=== PATIENT | female | born 1945 | race Caucasian/White ===

== ENCOUNTER 2019-07-01 14:12 | Outpatient (REF) | payer OTHER, SELFPAY ==
[2019-07-02 14:29] LABS: ALT 23 U/L (14-59); AST 40 U/L (15-37); Albumin 3.4 g/dL (3.4-5.0); Alkaline Phosphatase 203 U/L (46-116); Anion Gap 8.7 mmol/L (3-11); BUN 40 mg/dL (7-18); Bilirubin, Total 0.6 mg/dL (0.2-1.0); CO2 25.3 mmol/L (21.0-32.0); CREATININE 1.71 mg/dL (0.55-1.02); Calcium 10.1 mg/dL (8.5-10.1); Chloride 95 mmol/L (98-107); Estimated GFR 29.26 (mL/min/1.73m2); Glucose 101 mg/dL (74-106); Potassium 5.3 mmol/L (3.5-5.1); Sodium 129 mmol/L (136-145)
[2019-07-02 14:32] LABS: Iron 89 ug/dL (50-170)
== END 2019-07-01 14:32 ==
LOC: NCHCN 14:12
PROVIDERS: PCP Nurse Practitioner Family; Visit Provider Internal Medicine
DX: E11.9 Type 2 diabetes mellitus without complications (principal); I51.9 Heart disease, unspecified; I11.9 Hypertensive heart disease without heart failure; K74.69 Other cirrhosis of liver
CPT/HCPCS: 80053; 83540

== ENCOUNTER 2019-07-13 22:39 | Outpatient (REF) | payer OTHER, SELFPAY ==
[2019-07-13 20:42] LABS: Abs Immature Grans 0.02 k/cumm (0.0-0.09); Absolute Basophil Count 0.02 k/cumm (0.0-0.2); Absolute Eosinophil Count 0.28 k/cumm (0.0-0.7); Absolute Monocyte Count 1.08 k/cumm (0.11-0.7); Absolute Neutrophil Count 5.07 k/cumm (1.2-6.7); Basophils % 0.3; Eosinophils % 3.7; HCT 38.3 % (36.0-46.0); HGB 12.5 g/dL (12.0-15.5); Immature Grans % 0.3 %; Lymphocytes % 15.6; Mean Corp. HGB Concentration 32.6 g/dL (32.0-36.0); Mean Corpuscular Hemoglobin 30.3 pg (27.0-33.0); Mean Corpuscular Volume 92.7 fL (80-95); Mean Platelet Volume 10.6 fL (8.0-11.0); Monocytes % 14.1; RBC 4.13 m/cumm (4.00-5.20); RBC Distribution Width 17.6 % (11.7-14.6); White Blood Cell Count 7.67 k/cumm (4.4-10.8)
[2019-07-13 21:10] LABS: ALT 22 U/L (14-59); AST 40 U/L (15-37); Albumin 3.5 g/dL (3.4-5.0); Alkaline Phosphatase 189 U/L (46-116); Anion Gap 10.1 mmol/L (3-11); BUN 36 mg/dL (7-18); Bilirubin, Total 0.9 mg/dL (0.2-1.0); CO2 26.9 mmol/L (21.0-32.0); CREATININE 1.76 mg/dL (0.55-1.02); Calcium 9.7 mg/dL (8.5-10.1); Chloride 97 mmol/L (98-107); Estimated GFR 28.31 (mL/min/1.73m2); Glucose 102 mg/dL (74-106); Platelet Count 167 x1000/uL (130-400); Potassium 4.7 mmol/L (3.5-5.1); Sodium 134 mmol/L (136-145); TSH 0.06 uIU/mL (0.36-3.74); Total Protein 7.8 g/dL (6.4-8.2)
== END 2019-07-13 22:59 ==
LOC: LBN 22:39
PROVIDERS: PCP Nurse Practitioner Family; Visit Provider Internal Medicine
DX: I11.9 Hypertensive heart disease without heart failure (principal); I51.9 Heart disease, unspecified; K74.60 Unspecified cirrhosis of liver; E11.9 Type 2 diabetes mellitus without complications
CPT/HCPCS: 80053; 84443; 85025

== ENCOUNTER 2019-07-24 20:53 | Outpatient (REF) | payer OTHER, SELFPAY ==
[2019-07-24 21:03] LABS: Abs Immature Grans 0.02 k/cumm (0.0-0.09); Absolute Basophil Count 0.02 k/cumm (0.0-0.2); Absolute Eosinophil Count 0.51 k/cumm (0.0-0.7); Absolute Lymphocyte Count 1.19 k/cumm (1.2-3.4); Absolute Monocyte Count 0.72 k/cumm (0.11-0.7); Basophils % 0.3; Eosinophils % 8.9; HCT 33.9 % (36.0-46.0); HGB 11.1 g/dL (12.0-15.5); Immature Grans % 0.3 %; Lymphocytes % 20.7; Mean Corp. HGB Concentration 32.7 g/dL (32.0-36.0); Mean Corpuscular Hemoglobin 31.2 pg (27.0-33.0); Mean Corpuscular Volume 95.2 fL (80-95); Monocytes % 12.5; Neutrophils % 57.3; Platelet Count 169 x1000/uL (130-400); RBC 3.56 m/cumm (4.00-5.20); RBC Distribution Width 16.1 % (11.7-14.6); White Blood Cell Count 5.76 k/cumm (4.4-10.8)
== END 2019-07-24 21:13 ==
LOC: NCHCN 20:53
PROVIDERS: PCP Nurse Practitioner Family; Visit Provider Internal Medicine
DX: I11.9 Hypertensive heart disease without heart failure (principal); K74.69 Other cirrhosis of liver
CPT/HCPCS: 80048; 85025

== ENCOUNTER 2019-08-05 20:38 | Outpatient (REF) | payer OTHER, SELFPAY ==
[2019-08-05 21:20] LABS: ALT 21 U/L (14-59); AST 35 U/L (15-37); Albumin 2.7 g/dL (3.4-5.0); Alkaline Phosphatase 156 U/L (46-116); Anion Gap 6.4 mmol/L (3-11); BUN 5 mg/dL (7-18); Bilirubin, Total 0.8 mg/dL (0.2-1.0); CO2 29.6 mmol/L (21.0-32.0); CREATININE 0.99 mg/dL (0.55-1.02); Calcium 8.5 mg/dL (8.5-10.1); Chloride 103 mmol/L (98-107); Estimated GFR 54.98 (mL/min/1.73m2); Glucose 72 mg/dL (74-106); Potassium 3.9 mmol/L (3.5-5.1); Sodium 139 mmol/L (136-145); TSH 0.17 uIU/mL (0.36-3.74); Total Protein 6.3 g/dL (6.4-8.2)
== END 2019-08-05 20:58 ==
LOC: NCHCN 20:38
PROVIDERS: PCP Nurse Practitioner Family; Visit Provider Internal Medicine
DX: K74.60 Unspecified cirrhosis of liver (principal); I51.9 Heart disease, unspecified; E11.9 Type 2 diabetes mellitus without complications
CPT/HCPCS: 80053; 84443

== ENCOUNTER 2019-08-28 14:59 | Outpatient (REF) | payer OTHER, MEDICAID, SELFPAY ==
[2019-08-28 21:29] LABS: Anion Gap 5.2 mmol/L (3-11); BUN 12 mg/dL (7-18); CO2 28.8 mmol/L (21.0-32.0); CREATININE 1.02 mg/dL (0.55-1.02); Calcium 9.2 mg/dL (8.5-10.1); Chloride 103 mmol/L (98-107); Estimated GFR 53.12 (mL/min/1.73m2); Glucose 96 mg/dL (74-106); Potassium 4.7 mmol/L (3.5-5.1); Sodium 137 mmol/L (136-145)
[2019-08-28 21:31] LABS: HCT 32.8 % (36.0-46.0); HGB 10.4 g/dL (12.0-15.5); Mean Corp. HGB Concentration 31.7 g/dL (32.0-36.0); Mean Corpuscular Volume 97.6 fL (80-95); Mean Platelet Volume 11.2 fL (8.0-11.0); Platelet Count 186 x1000/uL (130-400); RBC 3.36 m/cumm (4.00-5.20); RBC Distribution Width 14.9 % (11.7-14.6)
== END 2019-08-28 15:19 ==
LOC: NCHCN 14:59
PROVIDERS: PCP Nurse Practitioner Family; Visit Provider Internal Medicine
DX: R18.8 Other ascites (principal); D64.9 Anemia, unspecified
CPT/HCPCS: 80048; 85027

== ENCOUNTER 2019-12-07 11:56 | Outpatient (REF) | payer OTHER, MEDICAID, SELFPAY ==
[2019-12-07 21:11] LABS: HCT 35.7 % (36.0-46.0); HGB 11.7 g/dL (11.2-15.7); MCHC 32.8 % (32.0-36.0); MCV 103.8 fL (80-95); MPV 9.7 fL (8.0-11.0); Platelet Count 176 10^3/uL (130-400); RBC 3.44 10^6/uL (3.93-5.22); RDW 11.9 % (11.7-14.6); RDW-SD 45.4 fL; WBC 6.29 10^3/uL (4.4-10.8)
[2019-12-07 21:44] LABS: ALT 18 U/L (14-59); AST 35 U/L (15-37); Albumin 3.6 g/dL (3.4-5.0); Alkaline Phosphatase 160 U/L (46-116); Anion Gap 5.9 mmol/L (3-11); BUN 16 mg/dL (7-18); Bilirubin, Total 0.6 mg/dL (0.2-1.0); CO2 28.1 mmol/L (21.0-32.0); CREATININE 1.36 mg/dL (0.55-1.02); Calcium 9.8 mg/dL (8.5-10.1); Chloride 105 mmol/L (98-107); Estimated GFR 38.11 (mL/min/1.73m2); Ferritin 144 ng/mL (8-252); Glucose 100 mg/dL (74-106); Potassium 5.2 mmol/L (3.5-5.1); Sodium 139 mmol/L (136-145); Total Protein 7.5 g/dL (6.4-8.2)
== END 2019-12-07 12:16 ==
LOC: NCHCN 11:56
PROVIDERS: PCP Nurse Practitioner Family; Visit Provider Internal Medicine
DX: D64.9 Anemia, unspecified (principal); K62.5 Hemorrhage of anus and rectum; E03.9 Hypothyroidism, unspecified; K70.31 Alcoholic cirrhosis of liver with ascites; F03.90 Unspecified dementia, unspecified severity, without behavioral disturbance, psychotic disturbance, mood disturbance, and anxiety; R82.90 Unspecified abnormal findings in urine
CPT/HCPCS: 80053; 85027; 82728; 84443; 87086

== ENCOUNTER 2019-12-24 21:53 | Outpatient (REF) | payer OTHER, MEDICAID, SELFPAY ==
[2019-12-24 21:03] LABS: Anion Gap 6.6 mmol/L (3-11); BUN 14 mg/dL (7-18); CO2 28.4 mmol/L (21.0-32.0); Calcium 9.6 mg/dL (8.5-10.1); Chloride 102 mmol/L (98-107); Estimated GFR 34.04 (mL/min/1.73m2); Glucose 133 mg/dL (74-106); Potassium 4.9 mmol/L (3.5-5.1); Sodium 137 mmol/L (136-145)
== END 2019-12-24 22:13 ==
LOC: NCHCN 21:53
PROVIDERS: PCP Nurse Practitioner Family; Visit Provider Nurse Practitioner Family
DX: R94.4 Abnormal results of kidney function studies (principal)
CPT/HCPCS: 80048

== ENCOUNTER 2020-01-26 12:41 | Outpatient (REF) | payer OTHER, MEDICAID, SELFPAY ==
[2020-01-26 22:03] LABS: ALT 19 U/L (14-59); AST 25 U/L (15-37); Albumin 3.2 g/dL (3.4-5.0); Alkaline Phosphatase 145 U/L (46-116); BUN 7 mg/dL (7-18); Bilirubin, Total 0.5 mg/dL (0.2-1.0); CREATININE 1.29 mg/dL (0.55-1.02); Calcium 9.3 mg/dL (8.5-10.1); Chloride 103 mmol/L (98-107); Estimated GFR 40.51 (mL/min/1.73m2); Glucose 100 mg/dL (74-106); Potassium 4.5 mmol/L (3.5-5.1); Sodium 140 mmol/L (136-145); TSH (W/Ref FT4) 3.27 uIU/mL (0.36-3.74); Total Protein 6.7 g/dL (6.4-8.2)
== END 2020-01-26 13:01 ==
LOC: NCHCN 12:41
PROVIDERS: PCP Nurse Practitioner Family; Visit Provider Nurse Practitioner Family
DX: E03.9 Hypothyroidism, unspecified (principal); N28.9 Disorder of kidney and ureter, unspecified
CPT/HCPCS: 80053; 84443

== ENCOUNTER 2020-07-12 12:53 | Outpatient (REF) | payer OTHER, MEDICAID, SELFPAY ==
[2020-07-12 22:01] LABS: ALT 22 U/L (14-59); AST 30 U/L (15-37); Albumin 3.3 g/dL (3.4-5.0); Alkaline Phosphatase 141 U/L (46-116); Anion Gap 8.9 mmol/L (3-11); BUN 6 mg/dL (7-18); Bilirubin, Total 0.7 mg/dL (0.2-1.0); CO2 27.1 mmol/L (21.0-32.0); CREATININE 1.2 mg/dL (0.55-1.02); Calcium 9.4 mg/dL (8.5-10.1); Chloride 105 mmol/L (98-107); Estimated GFR 43.91 (mL/min/1.73m2); Glucose 116 mg/dL (74-106); Potassium 4.8 mmol/L (3.5-5.1); Sodium 141 mmol/L (136-145); TSH 0.81 uIU/mL (0.36-3.74); Total Protein 7.4 g/dL (6.4-8.2)
== END 2020-07-12 12:54 | disposition home or self-care (01) ==
LOC: NCHCN 12:53
PROVIDERS: PCP Nurse Practitioner Family; Visit Provider Nurse Practitioner Family
DX: E03.9 Hypothyroidism, unspecified (principal); Z51.81 Encounter for therapeutic drug level monitoring
CPT/HCPCS: 80053; 84443

== ENCOUNTER 2021-03-23 12:49 | Outpatient (REF) | payer OTHER, MEDICAID, SELFPAY ==
[2021-03-23 21:25] LABS: HCT 39.2 % (36.0-46.0); HGB 12.7 g/dL (11.2-15.7); MCH 32.6 pg (27.0-33.0); MCHC 32.4 % (32.0-36.0); MCV 100.5 fL (80-95); MPV 10.5 fL (8.0-11.0); Platelet Count 147 10^3/uL (130-400); RDW 13.1 % (11.7-14.6); RDW-SD 48.9 fL; WBC 5.81 10^3/uL (4.4-10.8)
[2021-03-23 22:08] LABS: ALT 17 U/L (14-59); AST 25 U/L (15-37); Albumin 3.1 g/dL (3.4-5.0); Alkaline Phosphatase 205 U/L (46-116); Anion Gap 8.5 mmol/L (3-11); BUN 11 mg/dL (7-18); Bilirubin, Total 0.9 mg/dL (0.2-1.0); CO2 28.5 mmol/L (21.0-32.0); Calcium 9.2 mg/dL (8.5-10.1); Chloride 105 mmol/L (98-107); Estimated GFR 54.05 (mL/min/1.73m2); Glucose 168 mg/dL (74-106); Sodium 142 mmol/L (136-145); TSH (W/Ref FT4) 0.03 uIU/mL (0.36-3.74)
[2021-03-23 22:38] LABS: FREE T4 1.12 ng/dL (0.76-1.46)
== END 2021-03-23 12:50 | disposition home or self-care (01) ==
LOC: NCHCN 12:49
PROVIDERS: PCP Nurse Practitioner Family; Visit Provider Nurse Practitioner Family
DX: F03.90 Unspecified dementia, unspecified severity, without behavioral disturbance, psychotic disturbance, mood disturbance, and anxiety (principal); K70.31 Alcoholic cirrhosis of liver with ascites; K72.91 Hepatic failure, unspecified with coma
CPT/HCPCS: 80053; 85027; 84439; 84443

== ENCOUNTER 2021-06-05 18:29 | Outpatient (REF) | payer OTHER, MEDICAID, SELFPAY ==
[2021-06-05 21:52] LABS: Glucose 133 mg/dL (74-106); TSH 0.39 uIU/mL (0.36-3.74)
== END 2021-06-05 18:30 | disposition home or self-care (01) ==
LOC: NCHCN 18:29
PROVIDERS: PCP Nurse Practitioner Family; Visit Provider Internal Medicine
DX: R73.09 Other abnormal glucose (principal); E03.9 Hypothyroidism, unspecified
CPT/HCPCS: 82947; 84443

== ENCOUNTER 2022-01-09 14:09 | Outpatient (REF) | payer OTHER, MEDICAID, SELFPAY ==
[2022-01-09 16:47] LABS: HCT 37.1 % (36.0-46.0); HGB 12.4 g/dL (11.2-15.7); MCH 33.8 pg (27.0-33.0); MCHC 33.4 % (32.0-36.0); MCV 101 fL (80-95); MPV 11.1 fL (8.0-11.0); Platelet Count 157 10^3/uL (130-400); RBC 3.67 10^6/uL (3.93-5.22); RDW 12.1 % (11.7-14.6); RDW-SD 45.6 fL; WBC 6.41 10^3/uL (4.4-10.8)
[2022-01-09 16:56] LABS: Hemoglobin A1C 5.8 % (<5.7)
[2022-01-09 16:59] LABS: ALT 18 U/L (14-59); AST 30 U/L (15-37); Albumin 3.3 g/dL (3.4-5.0); Alkaline Phosphatase 139 U/L (46-116); BUN 10 mg/dL (7-18); Bilirubin, Total 0.7 mg/dL (0.2-1.0); CREATININE 1.2 mg/dL (0.55-1.02); Calcium 9.6 mg/dL (8.5-10.1); Chloride 103 mmol/L (98-107); Estimated GFR 47.21 (mL/min/1.73m2); Glucose 145 mg/dL (74-106); Sodium 140 mmol/L (136-145); Total Protein 7.6 g/dL (6.4-8.2)
== END 2022-01-09 14:10 | disposition home or self-care (01) ==
LOC: NCHCN 14:09
PROVIDERS: PCP Nurse Practitioner Family; Visit Provider Nurse Practitioner Family
DX: R73.03 Prediabetes (principal); K74.60 Unspecified cirrhosis of liver
CPT/HCPCS: 80053; 85027; 83036

== ENCOUNTER 2022-06-07 21:20 | Outpatient (REF) | payer MEDICARE, MEDICAID, SELFPAY ==
[2022-06-07 21:44] LABS: TSH 0.24 uIU/mL (0.36-3.74)
== END 2022-06-07 21:21 | disposition home or self-care (01) ==
LOC: NCHCN 21:20
PROVIDERS: PCP Nurse Practitioner Family; Visit Provider Nurse Practitioner Family
DX: E03.9 Hypothyroidism, unspecified (principal)
CPT/HCPCS: 84443

== ENCOUNTER 2022-07-20 11:51 | Outpatient (REF) | payer MEDICARE, MEDICAID, SELFPAY ==
[2022-07-20 15:38] LABS: TSH 6.68 uIU/mL (0.36-3.74)
== END 2022-07-20 11:52 | disposition home or self-care (01) ==
LOC: NCHCN 11:51
PROVIDERS: PCP Nurse Practitioner Family; Visit Provider Nurse Practitioner Family
DX: E03.9 Hypothyroidism, unspecified (principal)
CPT/HCPCS: 84443

== ENCOUNTER 2022-09-25 13:31 | Outpatient (REF) | payer MEDICARE, MEDICAID, SELFPAY ==
[2022-09-25 22:09] LABS: HCT 35.7 % (36.0-46.0); HGB 11.9 g/dL (11.2-15.7); MCH 33.5 pg (27.0-33.0); MCHC 33.3 % (32.0-36.0); MCV 101 fL (80-95); MPV 10.7 fL (8.0-11.0); Platelet Count 179 10^3/uL (130-400); RBC 3.55 10^6/uL (3.93-5.22); RDW 13.2 % (11.7-14.6); WBC 6.92 10^3/uL (4.4-10.8)
[2022-09-25 22:16] LABS: Prothrombin Time 10.3 sec (9.3-11.0)
[2022-09-25 22:34] LABS: ALT 36 U/L (14-59); AST 42 U/L (15-37); Albumin 3.5 g/dL (3.4-5.0); Alkaline Phosphatase 136 U/L (46-116); Anion Gap 8.3 mmol/L (3-11); BUN 9 mg/dL (7-18); Bilirubin, Total 0.4 mg/dL (0.2-1.0); CO2 28.7 mmol/L (21.0-32.0); CREATININE 1.1 mg/dL (0.55-1.02); Calcium 8.9 mg/dL (8.5-10.1); Chloride 106 mmol/L (98-107); Estimated GFR 52.08 (mL/min/1.73m2); Glucose 97 mg/dL (74-106); Magnesium 1.8 mg/dL (1.8-2.4); Potassium 3.9 mmol/L (3.5-5.1); Sodium 143 mmol/L (136-145); TSH 2.05 uIU/mL (0.36-3.74); Total Protein 7.2 g/dL (6.4-8.2)
== END 2022-09-25 13:32 | disposition home or self-care (01) ==
LOC: NCHCN 13:31
PROVIDERS: PCP Nurse Practitioner Family; Visit Provider Nurse Practitioner Family
DX: K73.1 Chronic lobular hepatitis, not elsewhere classified (principal); K72.10 Chronic hepatic failure without coma; E03.9 Hypothyroidism, unspecified; K70.31 Alcoholic cirrhosis of liver with ascites
CPT/HCPCS: 80053; 85027; 83735; 84443; 85610

== ENCOUNTER 2023-01-08 17:26 | Outpatient (REF) | payer MEDICARE, MEDICAID, SELFPAY ==
--- OUTSIDE RECORDS SUMMARY | 2023-01-08 17:29 | XMS_ITS | CCD ---
Author Name Unknown Address [address] [place] [address] [phone] Organization Unknown Address [address] [place] [address] [phone] Care Team Providers Care Cytotechnologist Supervisor Name Role Phone KYLE KATHLEEN Attending Physician [phone] Vital Signs Unknown or Not Available. Allergies Unknown or Not Available. Procedures Unknown or Not Available. History of Immunizations Unknown or Not Available. Problems Problem Code Start Date Resolved Date Status NSTEMI [id number] Active Systolic heart murmur [id number] Act nola Results Unknown or Not Available. Active Medications Medication Code Dose Units Frequency Route Modificatio n Start Date/Time Nitroglycerin 0.4MG Sublingual Tablet 293930 1 TABLET NEEDED SUBLINGUAL 12:19 Prescription Detail DISSOLVE 1 TABLET SUBLINGUAL NEEDED F OR CHEST PAIN, REPEAT AFTER 5 MINUTES X 2 NEEDED Atorvastatin Calcium 40MG Oral Tablet [id number] 40 MILLIGRAMS BEDTIME ORAL 023 12:17 Prescription Detail TAKE 40 MILLIGRAMS ORAL BEDTIME Calcium 1200 w/Vitamin D 600 MG-100 IU Oral Capsule, Liquid Filled 57889981123 2 EACH BEDTIME ORAL 10/2022 12:17 Prescription Detail TAKE 2 EACH ORAL BEDTIME Citalopram 20MG Oral Tablet 123136 20 MILLIGRAMS DAILY ORAL 12:17 Prescription Detail TAKE 20 MILLIGRAMS ORAL DAILY Gabapentin 400MG Oral Capsule 660783 400 MILLIGRAMS FOUR TIMES A DAY ORAL 10/19/2022 12:17 Prescription Detail TAKE 400 MILLIGRAMS ORAL FOUR TIMES A DA Y Iron 65 MG Oral Tablet 724532 65 MG DAILY ORAL 10/20/19 12:17 Prescription Detail TAKE 65 MG ORAL DAILY Levothyroxine 75MCG Oral Tablet 386277 75 MCG DAILY ORAL 10/19/2022 12:17 Prescription Detail TAKE 75 MCG ORAL DAILY Magnesium 200 MG Oral Tablet 929082 200 MG DAILY ORAL 10/19 12:17 Prescription Detail TAKE 200 MG ORAL DAILY NAC 600 MG Oral Capsule 911248 600 MG DAILY ORAL 023 12:17 Prescription Detail TAKE 600 MG ORAL DAILY Taurine 1000 MG Oral Capsule [id number] 1000 MG DAILY ORAL 10/20/19 12:17 Prescription Detail TAKE 1000 MG ORAL DAILY traMADol HCl 50MG Oral Tablet 207636 50 MILLIGRAMS NEEDED AT BEDTIME ORAL 10/19/2022 12:17 Prescription Detail TAKE 50 MILLIGRAMS ORAL NEEDED AT BED TIME Vitamin B1 100MG Oral Tablet 91769320974 100 MILLIGRAMS DAILY ORAL 023 12:17 Prescription Detail TAKE 100 MILLIGRAMS ORAL DAILY Vitamin C 1000MG Oral Tablet 560158 8391 MILLIGRAMS DAILY ORAL 12:17 Prescription Detail TAKE 1000 MILLIGRAMS ORAL DAILY Vitamin D3 1000IU Oral Tablet 471072 4561 INTERNATION AL UNITS DAILY ORAL 10/19/2022 12:17 Prescription Detail TAKE 1000 INTERNATIONAL UNITS ORAL DAILY Aspirin 81MG Oral Tablet, Enteric Coated 806027 81 MILLIGRAMS DAILY WITH FOOD ORAL 10/19/2022 12:16 Prescription Detail TAKE 81 MILLIGRAMS ORAL DAILY WITH FOOD Medications Administered During Visit Unknown or Not Available. Encounters Unknown or Not Available. Social History Smoking Status Code Start Date End Date Never smoker [id number] Patient Decision Aids Unknown or Not Available. Discharge Instructions You were admitted to on 05/09/2022 09:51 You were discharged from on 05/09/2022 09:52 Should you have any questions prior to discharge, please contact a member of your healthcare team. If you have left the hospital and have any questions, please contact your primary care physician. Chief Complaint and Reason For Visit Chief Complaint Date of Onset CIRRHOSIS Function Status Unknown or Not Available. Plan of Care Unknown or Not Available. Referral/Transition of Care Unknown or Not Available.
--- OUTSIDE RECORDS SUMMARY | 2023-01-08 17:29 | XMS_ITS | CCD ---
Author Name Unknown Address [address] [place] [address] [phone] Organization Unknown Address [address] [place] [address] [phone] Care Team Providers Care Process Validation Engineer Name Role Phone LINDA TELLO Attending Physician [phone] Vital Signs Unknown or Not Available. Allergies Allergy Code Allergy Type Reaction Status GLUTEN 0 Food allergy Active No Known Drug Allergies 0 No known drug allergies Active Procedures Unknown or Not Available. History of Immunizations Unknown or Not Available. Problems Problem Code Start Date Resolved Date Status NSTEMI [id number] Active Systolic heart murmur 34915005 Act nola Results Unknown or Not Available. Active Medications Medication Code Dose Units Frequency Route Modificatio n Start Date/Time Nitroglycerin 0.4MG Sublingual Tablet 864939 1 TABLET NEEDED SUBLINGUAL 12:19 Prescription Detail DISSOLVE 1 TABLET SUBLINGUAL NEEDED F OR CHEST PAIN, REPEAT AFTER 5 MINUTES X 2 NEEDED Atorvastatin Calcium 40MG Oral Tablet 973878 40 MILLIGRAMS BEDTIME ORAL 023 12:17 Prescription Detail TAKE 40 MILLIGRAMS ORAL BEDTIME Calcium 1200 w/Vitamin D 600 MG-100 IU Oral Capsule, Liquid Filled 66863291366 2 EACH BEDTIME ORAL 10/2022 12:17 Prescription Detail TAKE 2 EACH ORAL BEDTIME Citalopram 20MG Oral Tablet 409607 20 MILLIGRAMS DAILY ORAL 12:17 Prescription Detail TAKE 20 MILLIGRAMS ORAL DAILY Gabapentin 400MG Oral Capsule 481265 400 MILLIGRAMS FOUR TIMES A DAY ORAL 10/19/2022 12:17 Prescription Detail TAKE 400 MILLIGRAMS ORAL FOUR TIMES A DA Y Iron 65 MG Oral Tablet [id number] 65 MG DAILY ORAL 10/20/19 12:17 Prescription Detail TAKE 65 MG ORAL DAILY Levothyroxine 75MCG Oral Tablet 871441 75 MCG DAILY ORAL 10/19/2022 12:17 Prescription Detail TAKE 75 MCG ORAL DAILY Magnesium 200 MG Oral Tablet 519087 200 MG DAILY ORAL 10/19 12:17 Prescription Detail TAKE 200 MG ORAL DAILY NAC 600 MG Oral Capsule 746441 600 MG DAILY ORAL 023 12:17 Prescription Detail TAKE 600 MG ORAL DAILY Taurine 1000 MG Oral Capsule 10512954159 1000 MG DAILY ORAL 10/20/19 23 12:17 Prescription Detail TAKE 1000 MG ORAL DAILY traMADol HCl 50MG Oral Tablet [id number] 50 MILLIGRAMS NEEDED AT BEDTIME ORAL 10/19/2022 12:17 Prescription Detail TAKE 50 MILLIGRAMS ORAL NEEDED AT BED TIME Vitamin B1 100MG Oral Tablet 25040976125 100 MILLIGRAMS DAILY ORAL 023 12:17 Prescription Detail TAKE 100 MILLIGRAMS ORAL DAILY Vitamin C 1000MG Oral Tablet 899829 6372 MILLIGRAMS DAILY ORAL 12:17 Prescription Detail TAKE 1000 MILLIGRAMS ORAL DAILY Vitamin D3 1000IU Oral Tablet 649909 2304 INTERNATION AL UNITS DAILY ORAL 10/19/2022 12:17 Prescription Detail TAKE 1000 INTERNATIONAL UNITS ORAL DAILY Aspirin 81MG Oral Tablet, Enteric Coated 227953 81 MILLIGRAMS DAILY WITH FOOD ORAL 10/19/2022 12:16 Prescription Detail TAKE 81 MILLIGRAMS ORAL DAILY WITH FOOD Medications Administered During Visit Unknown or Not Available. Encounters Unknown or Not Available. Social History Smoking Status Code Start Date End Date Never smoker [id number] Patient Decision Aids Unknown or Not Available. Discharge Instructions You were admitted to [facility] on 12/07/2022 09:33 You were discharged from [facility] on 12/07/2022 09:33 Should you have any questions prior to discharge, please contact a member of your healthcare team. If you have left the hospital and have any questions, please contact your primary care physician. Chief Complaint and Reason For Visit Unknown or Not Available. Function Status Unknown or Not Available. Plan of Care Unknown or Not Available. Referral/Transition of Care Unknown or Not Available.
--- OUTSIDE RECORDS SUMMARY | 2023-01-08 17:29 | XMS_ITS | CCD ---
Author Name Unknown Address [address] [place] [address] [phone] Organization Unknown Address [address] [place] [address] [phone] Care Team Providers Care Curb Setter Name Role Phone LINDA TELLO Attending Physician [phone] LINDA TELLO Rounding (Secondary) Physician [phone] Vital Signs Unknown or Not Available. Allergies Unknown or Not Available. Procedures Unknown or Not Available. History of Immunizations Unknown or Not Available. Problems Problem Code Start Date Resolved Date Status NSTEMI [id number] Active Systolic heart murmur 71279333 Act nola Results Unknown or Not Available. Active Medications Medication Code Dose Units Frequency Route Modificatio n Start Date/Time Nitroglycerin 0.4MG Sublingual Tablet 245785 1 TABLET NEEDED SUBLINGUAL 12:19 Prescription Detail DISSOLVE 1 TABLET SUBLINGUAL NEEDED F OR CHEST PAIN, REPEAT AFTER 5 MINUTES X 2 NEEDED Atorvastatin Calcium 40MG Oral Tablet 789291 40 MILLIGRAMS BEDTIME ORAL 023 12:17 Prescription Detail TAKE 40 MILLIGRAMS ORAL BEDTIME Calcium 1200 w/Vitamin D 600 MG-100 IU Oral Capsule, Liquid Filled 04210332491 2 EACH BEDTIME ORAL 10/2022 12:17 Prescription Detail TAKE 2 EACH ORAL BEDTIME Citalopram 20MG Oral Tablet [id number] 20 MILLIGRAMS DAILY ORAL 12:17 Prescription Detail TAKE 20 MILLIGRAMS ORAL DAILY Gabapentin 400MG Oral Capsule 659876 400 MILLIGRAMS FOUR TIMES A DAY ORAL 10/19/2022 12:17 Prescription Detail TAKE 400 MILLIGRAMS ORAL FOUR TIMES A DA Y Iron 65 MG Oral Tablet 188795 65 MG DAILY ORAL 10/20/19 12:17 Prescription Detail TAKE 65 MG ORAL DAILY Levothyroxine 75MCG Oral Tablet 750101 75 MCG DAILY ORAL 10/19/2022 12:17 Prescription Detail TAKE 75 MCG ORAL DAILY Magnesium 200 MG Oral Tablet [id number] 200 MG DAILY ORAL 10/19 12:17 Prescription Detail TAKE 200 MG ORAL DAILY NAC 600 MG Oral Capsule 742541 600 MG DAILY ORAL 023 12:17 Prescription Detail TAKE 600 MG ORAL DAILY Taurine 1000 MG Oral Capsule 35646376754 1000 MG DAILY ORAL 10/20/19 23 12:17 Prescription Detail TAKE 1000 MG ORAL DAILY traMADol HCl 50MG Oral Tablet 864385 50 MILLIGRAMS NEEDED AT BEDTIME ORAL 10/19/2022 12:17 Prescription Detail TAKE 50 MILLIGRAMS ORAL NEEDED AT BED TIME Vitamin B1 100MG Oral Tablet 83640057167 100 MILLIGRAMS DAILY ORAL 023 12:17 Prescription Detail TAKE 100 MILLIGRAMS ORAL DAILY Vitamin C 1000MG Oral Tablet 087720 1046 MILLIGRAMS DAILY ORAL 12:17 Prescription Detail TAKE 1000 MILLIGRAMS ORAL DAILY Vitamin D3 1000IU Oral Tablet 435223 5996 INTERNATION AL UNITS DAILY ORAL 10/19/2022 12:17 Prescription Detail TAKE 1000 INTERNATIONAL UNITS ORAL DAILY Aspirin 81MG Oral Tablet, Enteric Coated 100280 81 MILLIGRAMS DAILY WITH FOOD ORAL 10/19/2022 12:16 Prescription Detail TAKE 81 MILLIGRAMS ORAL DAILY WITH FOOD Medications Administered During Visit Unknown or Not Available. Encounters Encounter Diagnosis Diagnosis Code Start Date Bilateral acquired trigger finger of middle fing ers [id number] 05/31/2021 Social History Smoking Status Code Start Date End Date Never smoker [id number] Patient Decision Aids Unknown or Not Available. Discharge Instructions You were admitted to [facility] on 05/31/2021 13:46 with a principal diagnosis of Acquired trigger finger of bilateral middle fingers You were discharged from [facility] on 05/31/2021 00:00 Should you have any questions prior to [...]
--- OUTSIDE RECORDS SUMMARY | 2023-01-08 17:29 | XMS_ITS | CCD ---
Author Name Unknown Address [address] [place] [address] [phone] Organization Unknown Address [address] [place] [address] [phone] Care Team Providers Care Clinical Program Manager Name Role Phone LINDA TELLO Attending Physician [phone] LINDA TELLO Rounding (Secondary) Physician [phone] Vital Signs Unknown or Not Available. Allergies Unknown or Not Available. Procedures Unknown or Not Available. History of Immunizations Unknown or Not Available. Problems Problem Code Start Date Resolved Date Status NSTEMI 501170525 Active Systolic heart murmur 52273398 Act nola Results Unknown or Not Available. Active Medications Medication Code Dose Units Frequency Route Modificatio n Start Date/Time Nitroglycerin 0.4MG Sublingual Tablet 711194 1 TABLET NEEDED SUBLINGUAL 12:19 Prescription Detail DISSOLVE 1 TABLET SUBLINGUAL NEEDED F OR CHEST PAIN, REPEAT AFTER 5 MINUTES X 2 NEEDED Atorvastatin Calcium 40MG Oral Tablet 524554 40 MILLIGRAMS BEDTIME ORAL 023 12:17 Prescription Detail TAKE 40 MILLIGRAMS ORAL BEDTIME Calcium 1200 w/Vitamin D 600 MG-100 IU Oral Capsule, Liquid Filled 94255704405 2 EACH BEDTIME ORAL 10/2022 12:17 Prescription Detail TAKE 2 EACH ORAL BEDTIME Citalopram 20MG Oral Tablet 477258 20 MILLIGRAMS DAILY ORAL 12:17 Prescription Detail TAKE 20 MILLIGRAMS ORAL DAILY Gabapentin 400MG Oral Capsule 816862 400 MILLIGRAMS FOUR TIMES A DAY ORAL 10/19/2022 12:17 Prescription Detail TAKE 400 MILLIGRAMS ORAL FOUR TIMES A DA Y Iron 65 MG Oral Tablet 799785 65 MG DAILY ORAL 10/20/19 12:17 Prescription Detail TAKE 65 MG ORAL DAILY Levothyroxine 75MCG Oral Tablet [id number] 75 MCG DAILY ORAL 10/19/2022 12:17 Prescription Detail TAKE 75 MCG ORAL DAILY Magnesium 200 MG Oral Tablet [id number] 200 MG DAILY ORAL 10/19 12:17 Prescription Detail TAKE 200 MG ORAL DAILY NAC 600 MG Oral Capsule [id number] 600 MG DAILY ORAL 023 12:17 Prescription Detail TAKE 600 MG ORAL DAILY Taurine 1000 MG Oral Capsule 12031118879 1000 MG DAILY ORAL 10/20/19 23 12:17 Prescription Detail TAKE 1000 MG ORAL DAILY traMADol HCl 50MG Oral Tablet 458007 50 MILLIGRAMS NEEDED AT BEDTIME ORAL 10/19/2022 12:17 Prescription Detail TAKE 50 MILLIGRAMS ORAL NEEDED AT BED TIME Vitamin B1 100MG Oral Tablet 61535559219 100 MILLIGRAMS DAILY ORAL 023 12:17 Prescription Detail TAKE 100 MILLIGRAMS ORAL DAILY Vitamin C 1000MG Oral Tablet 861327 8570 MILLIGRAMS DAILY ORAL 12:17 Prescription Detail TAKE 1000 MILLIGRAMS ORAL DAILY Vitamin D3 1000IU Oral Tablet 771765 5971 INTERNATION AL UNITS DAILY ORAL 10/19/2022 12:17 Prescription Detail TAKE 1000 INTERNATIONAL UNITS ORAL DAILY Aspirin 81MG Oral Tablet, Enteric Coated 019315 81 MILLIGRAMS DAILY WITH FOOD ORAL 10/19/2022 12:16 Prescription Detail TAKE 81 MILLIGRAMS ORAL DAILY WITH FOOD Medications Administered During Visit Unknown or Not Available. Encounters Encounter Diagnosis Diagnosis Code Start Date Trigger finger, right ring finger [id number] 07/12/2021 Social History Smoking Status Code Start Date End Date Never smoker [id number] Patient Decision Aids Unknown or Not Available. Discharge Instructions You were admitted to [facility] on 07/12/2021 09:56 with a principal diagnosis of Trigger finger, right ring finger You were discharged from [facility] on 07/12/2021 00:00 Should you have any questions prior [...]
--- OUTSIDE RECORDS SUMMARY | 2023-01-08 17:30 | XMS_ITS | CCD ---
Author Name Unknown Address [address] [place] [address] [phone] Organization Unknown Address [address] [place] [address] [phone] Care Team Providers Care Manager Of Tax Name Role Phone SREE WHITMORE Attending Physician [phone] Vital Signs Unknown or Not Available. Allergies Allergy Code Allergy Type Reaction Status GLUTEN 0 Food allergy Active No Known Drug Allergies 0 No known drug allergies Active Procedures Unknown or Not Available. History of Immunizations Unknown or Not Available. Problems Problem Code Start Date Resolved Date Status NSTEMI 969344427 Active Systolic heart murmur 42077827 Act nola Results Unknown or Not Available. Active Medications Medication Code Dose Units Frequency Route Modificatio n Start Date/Time Nitroglycerin 0.4MG Sublingual Tablet 266167 1 TABLET NEEDED SUBLINGUAL 12:19 Prescription Detail DISSOLVE 1 TABLET SUBLINGUAL NEEDED F OR CHEST PAIN, REPEAT AFTER 5 MINUTES X 2 NEEDED Atorvastatin Calcium 40MG Oral Tablet 740885 40 MILLIGRAMS BEDTIME ORAL 023 12:17 Prescription Detail TAKE 40 MILLIGRAMS ORAL BEDTIME Calcium 1200 w/Vitamin D 600 MG-100 IU Oral Capsule, Liquid Filled 09922576513 2 EACH BEDTIME ORAL 10/2022 12:17 Prescription Detail TAKE 2 EACH ORAL BEDTIME Citalopram 20MG Oral Tablet 600580 20 MILLIGRAMS DAILY ORAL 12:17 Prescription Detail TAKE 20 MILLIGRAMS ORAL DAILY Gabapentin 400MG Oral Capsule 525866 400 MILLIGRAMS FOUR TIMES A DAY ORAL 10/19/2022 12:17 Prescription Detail TAKE 400 MILLIGRAMS ORAL FOUR TIMES A DA Y Iron 65 MG Oral Tablet 704247 65 MG DAILY ORAL 10/20/19 12:17 Prescription Detail TAKE 65 MG ORAL DAILY Levothyroxine 75MCG Oral Tablet 646728 75 MCG DAILY ORAL 10/19/2022 12:17 Prescription Detail TAKE 75 MCG ORAL DAILY Magnesium 200 MG Oral Tablet 630777 200 MG DAILY ORAL 10/19 12:17 Prescription Detail TAKE 200 MG ORAL DAILY NAC 600 MG Oral Capsule 784820 600 MG DAILY ORAL 023 12:17 Prescription Detail TAKE 600 MG ORAL DAILY Taurine 1000 MG Oral Capsule 15074781595 1000 MG DAILY ORAL 10/20/19 23 12:17 Prescription Detail TAKE 1000 MG ORAL DAILY traMADol HCl 50MG Oral Tablet 312975 50 MILLIGRAMS NEEDED AT BEDTIME ORAL 10/19/2022 12:17 Prescription Detail TAKE 50 MILLIGRAMS ORAL NEEDED AT BED TIME Vitamin B1 100MG Oral Tablet 48369160803 100 MILLIGRAMS DAILY ORAL 023 12:17 Prescription Detail TAKE 100 MILLIGRAMS ORAL DAILY Vitamin C 1000MG Oral Tablet 322471 0278 MILLIGRAMS DAILY ORAL 12:17 Prescription Detail TAKE 1000 MILLIGRAMS ORAL DAILY Vitamin D3 1000IU Oral Tablet 846285 8422 INTERNATION AL UNITS DAILY ORAL 10/19/2022 12:17 Prescription Detail TAKE 1000 INTERNATIONAL UNITS ORAL DAILY Aspirin 81MG Oral Tablet, Enteric Coated 561393 81 MILLIGRAMS DAILY WITH FOOD ORAL 10/19/2022 12:16 Prescription Detail TAKE 81 MILLIGRAMS ORAL DAILY WITH FOOD Medications Administered During Visit Unknown or Not Available. Encounters Encounter Diagnosis Diagnosis Code Start Date Aortic stenosis, non-rheumatic [id number] 0 10/25/2022 Social History Smoking Status Code Start Date End Date Never smoker 120732049 Patient Decision Aids Unknown or Not Available. Discharge Instructions You were admitted to [facility] on 10/25/2022 08:46 with a principal diagnosis of Nonrheumatic aortic (valve) stenosis You were discharged from [facility] on 10/25/2022 08:46 Should you have any questions prior to [...]
--- OUTSIDE RECORDS SUMMARY | 2023-01-08 17:30 | XMS_ITS | CCD ---
Author Name Unknown Address [address] [place] [address] [phone] Organization Unknown Address [address] [place] [address] [phone] Care Team Providers Care Observer Helper Name Role Phone JOSE D ALBARADO Attending Physician [phone] Vital Signs Unknown or Not Available. Allergies Allergy Code Allergy Type Reaction Status GLUTEN 0 Food allergy Active No Known Drug Allergies 0 No known drug allergies Active Procedures Unknown or Not Available. History of Immunizations Unknown or Not Available. Problems Problem Code Start Date Resolved Date Status NSTEMI 606853945 Active Systolic heart murmur 04043189 Act nola Results Unknown or Not Available. Active Medications Medication Code Dose Units Frequency Route Modificatio n Start Date/Time Nitroglycerin 0.4MG Sublingual Tablet 030603 1 TABLET NEEDED SUBLINGUAL 12:19 Prescription Detail DISSOLVE 1 TABLET SUBLINGUAL NEEDED F OR CHEST PAIN, REPEAT AFTER 5 MINUTES X 2 NEEDED Atorvastatin Calcium 40MG Oral Tablet 395711 40 MILLIGRAMS BEDTIME ORAL 023 12:17 Prescription Detail TAKE 40 MILLIGRAMS ORAL BEDTIME Calcium 1200 w/Vitamin D 600 MG-100 IU Oral Capsule, Liquid Filled [id number] 2 EACH BEDTIME ORAL 10/2022 12:17 Prescription Detail TAKE 2 EACH ORAL BEDTIME Citalopram 20MG Oral Tablet 345238 20 MILLIGRAMS DAILY ORAL 12:17 Prescription Detail TAKE 20 MILLIGRAMS ORAL DAILY Gabapentin 400MG Oral Capsule 266951 400 MILLIGRAMS FOUR TIMES A DAY ORAL 10/19/2022 12:17 Prescription Detail TAKE 400 MILLIGRAMS ORAL FOUR TIMES A DA Y Iron 65 MG Oral Tablet 598759 65 MG DAILY ORAL 10/20/19 12:17 Prescription Detail TAKE 65 MG ORAL DAILY Levothyroxine 75MCG Oral Tablet 366781 75 MCG DAILY ORAL 10/19/2022 12:17 Prescription Detail TAKE 75 MCG ORAL DAILY Magnesium 200 MG Oral Tablet 721050 200 MG DAILY ORAL 10/19 12:17 Prescription Detail TAKE 200 MG ORAL DAILY NAC 600 MG Oral Capsule 935596 600 MG DAILY ORAL 023 12:17 Prescription Detail TAKE 600 MG ORAL DAILY Taurine 1000 MG Oral Capsule 73082984999 1000 MG DAILY ORAL 10/20/19 12:17 Prescription Detail TAKE 1000 MG ORAL DAILY traMADol HCl 50MG Oral Tablet 655010 50 MILLIGRAMS NEEDED AT BEDTIME ORAL 10/19/2022 12:17 Prescription Detail TAKE 50 MILLIGRAMS ORAL NEEDED AT BED TIME Vitamin B1 100MG Oral Tablet 24038761923 100 MILLIGRAMS DAILY ORAL 023 12:17 Prescription Detail TAKE 100 MILLIGRAMS ORAL DAILY Vitamin C 1000MG Oral Tablet 021946 2022 MILLIGRAMS DAILY ORAL 12:17 Prescription Detail TAKE 1000 MILLIGRAMS ORAL DAILY Vitamin D3 1000IU Oral Tablet 811670 2675 INTERNATION AL UNITS DAILY ORAL 10/19/2022 12:17 Prescription Detail TAKE 1000 INTERNATIONAL UNITS ORAL DAILY Aspirin 81MG Oral Tablet, Enteric Coated 432167 81 MILLIGRAMS DAILY WITH FOOD ORAL 10/19/2022 12:16 Prescription Detail TAKE 81 MILLIGRAMS ORAL DAILY WITH FOOD Medications Administered During Visit Unknown or Not Available. Encounters Encounter Diagnosis Diagnosis Code Start Date Non-ST elevation (NSTEMI) myocardial infarction I214 10/24/2022 Social History Smoking Status Code Start Date End Date Never smoker [id number] Patient Decision Aids Unknown or Not Available. Discharge Instructions You were admitted to [facility] on 10/24/2022 13:49 with a principal diagnosis of Non-ST elevation (NSTEMI) myocardial infarction You were discharged from [facility] on 10/24/2022 13:49 Should you have any questions prior to [...]
--- OUTSIDE RECORDS SUMMARY | 2023-01-08 17:30 | XMS_ITS | CCD ---
Author Name Unknown Address [address] [place] [address] [phone] Organization Unknown Address [address] [place] [address] [phone] Care Team Providers Care Non Profit Job Titles Name Role Phone STACEY SARABIA Attending Physician [phone] RICA SAL Er Physician [phone] RICA SAL Rounding (Secondary) Physician [phone] JV Berg Registered Nurse [phone] Vital Signs Vital Sign Value Unit Date/Time Recent/Initial ? BMI (Body Mass Index) 36.58 kg/m^2 10/15/2022 17: 58 Initial VS Weight Measured 200 lbs 10/15/2022 17:58 Ini tial VS Height 62 in 10/15/2022 17:58 Initial VS BSA (Body Surface Area) 1.99 m^2 10/15/2022 1 7:58 Initial VS BP Systolic 145 mmHg 10/15/2022 17:58 Initial VS BP Diastolic 100 mmHg 10/15/2022 17:58 Initia l VS Respiratory Rate 19 bpm 10/15/2022 17:58 In itial VS Heart Rate 62 bpm 10/15/2022 17:58 Initial VS O2 % BldC Oximetry 98 % 10/15/2022 17:58 Initial VS Body Temperature 36.1 degrees 10/15/2022 17:58 In itial VS BP Systolic 121 mmHg 10/19/2022 11:28 Most Re cent VS BP Diastolic 65 mmHg 10/19/2022 11:28 Most R ecent VS Respiratory Rate 20 bpm 10/19/2022 11:[address] Recent VS Heart Rate 70 bpm 10/19/2022 11:28 Most Rec ent VS O2 % BldC Oximetry 95 % 10/19/2022 11:28 Most Recent VS Body Temperature 36.3 degrees 10/19/2022 11:[address] Recent VS Allergies Allergy Code Allergy Type Reaction Status GLUTEN 0 Food allergy Active No Known Drug Allergies 0 No known drug allergies Active Procedures Unknown or Not Available. History of Immunizations Unknown or Not Available. Problems Problem Code Start Date Resolved Date Status NSTEMI 178265489 Active Systolic heart murmur [id number] Act nola Results BASIC METABOLIC PANEL (BMP) - Collect Date/Time: 10/18/2022 06:45 Test Name Code Test Result Test Units Test Ref Rang e GLUCOSE 2345-7 95 mg/dL L=70 H=116 BUN 3094-0 12 mg/dL L=6 H=25 CREATININE 2160-0 1.09 mg/dL L=0.51 H=0.95 SODIUM SERUM 2951-2 137 mmol/L L=136 H=145 POTASSIUM SERUM 2823-3 4.2 mmol/L L=3.4 H=5 .2 CHLORIDE SERUM 2075-0 105 mmol/L L=96 H=110 CARBON DIOXIDE (CO2) 2028-9 24 mmol/L L=22 H=34 ANION GAP 25477-9 8.0 mmol/L CALCIUM SERUM 12429-1 8.8 mg/dL L=8.2 H=10. 2 AGE 77 years eGFR (non-Afr.Amer.) 17569-5 49 mL/min eGFR (Afr-Guinean) 93051-3 59 mL/min BASIC METABOLIC PANEL (BMP) - Collect Date/Time: 10/16/2022 07:25 Test Name Code Test Result Test Units Test Ref Rang e GLUCOSE 2345-7 92 mg/dL L=70 H=116 BUN 3094-0 12 mg/dL L=6 H=25 CREATININE 2160-0 1.07 mg/dL L=0.51 H=0.95 SODIUM SERUM 2951-2 138 mmol/L L=136 H=145 POTASSIUM SERUM 2823-3 3.8 mmol/L L=3.4 H=5 .2 CHLORIDE SERUM 2075-0 104 mmol/L L=96 H=110 CARBON DIOXIDE (CO2) 2028-9 25 mmol/L L=22 H=34 ANION GAP 30249-0 8.9 mmol/L CALCIUM SERUM 49253-8 8.9 mg/dL L=8.2 H=10. 2 AGE 77 years eGFR (non-Afr.Amer.) 77440-9 50 mL/min eGFR (Afr-[place]ine[place]) 38582-8 60 mL/min COMPREHENSIVE METABOLIC PANE L (CMP) - Collect Date/Time: 10/15/2022 19:15 Test Name Code Test Result Test Units Test Ref Rang e GLUCOSE 2345-7 89 mg/dL L=70 H=116 BUN 3094-0 12 mg/dL L=6 H=25 CREATININE 2160-0 1.21 mg/dL L=0.51 H=0.95 SODIUM SERUM 2951-2 140 mmol/L L=136 H=145 POTASSIUM SERUM 2823-3 3.9 mmol/L L=3.4 H=5 .2 CHLORIDE SERUM 2075-0 103 mmol/L L=96 H=110 CARBON DIOXIDE (CO2) 2028-9 27 mmol/L L=22 H=34 ANION GAP 73287-2 9.9 mmol/L CALCIUM SERUM 66289-0 9.4 mg/dL L=8.2 H=10. 2 BILIRUBIN TOTAL 1975-2 0.7 mg/dL L=0.0 H=1 .3 ALK. PHOS. 6768-6 109 U/L L=46 H=116 SGOT (AST) 1920-8 38 U/L L=15 H=37 SGPT (ALT) 1742-6 33 U/L L=12 H=78 TOTAL PROTEIN 2885-2 7.8 gm/dL L=6.0 H=8.0 ALBUMIN 1751-7 3.4 gm/dL L=3.4 H=5.0 AGE 77 years eGFR (non-Afr.Amer.) 46990-4 43 mL/min eGFR (Afr-[place]inean) 38753-9 52 mL/min THYROID TESTING CASCADE* - C ollect Date/Time: 10/15/2022 19:15 Test Name Code Test Result Test Units Test Ref Rang e TSH. 3014-8 2.067 uIU/mL L=0.360 H=3.74 0 TROPONIN HIGH SENSITIVITY* - Collect Date/Time: 10/18/2022 06:45 Test Name Code Test Result Test Units Test Ref Rang e TROPONIN HS 341.5 pg/mL L=0.0 H=60.4 Specimen seq. OTHER N/A TROPONIN HIGH SENSITIVITY* - Collect Date/Time: 10/17/2022 06:30 Test Name Code Test Result Test Units Test Ref Rang e TROPONIN HS 517.1 pg/mL L=0.0 H=60.4 Specimen seq. OTHER N/A TROPONIN HIGH SENSITIVITY* - Collect Date/Time: 10/16/2022 07:25 Test Name Code Test Result Test Units Test Ref Rang e TROPONIN HS 707.6 pg/mL L=0.0 H=60.4 Specimen seq. OTHER N/A TROPONIN HIGH SENSITIVITY* - Collect Date/Time: 10/15/2022 22:41 Test Name Code Test Result Test Units Test Ref Rang e TROPONIN HS 718.1 pg/mL L=0.0 H=60.4 Specimen seq. 3 HOUR N/A TROPONIN HIGH SENSITIVITY* - Collect Date/Time: 10/15/2022 19:15 Test Name Code Test Result Test Units Test Ref Rang e TROPONIN HS 857.5 pg/mL L=0.0 H=60.4 Specimen seq. RANDOM N/A CBC W/ DIFFERENTIAL* - Colle ct Date/Time: 10/18/2022 06:45 Test Name Code Test Result Test Units Test Ref Rang e WBC 6690-2 6.99 th/cmm L=5.00 H=10.00 NEUT % 59.4 % L=40.0 H=80.0 LYMPH % 25.3 % L=10.0 H=50.0 MONO % 58393-7 8.3 % L=2.0 H=12.0 EOS % 6.3 % L=0.0 H=8.0 BASO % 0.4 % L=0.0 H=3.0 IG % 2514-8 0.3 % L=0.0 H=1.1 NRBC % 26541-1 0.0 % L=0.0 H=0.0 NEUT abs count 751-8 4.2 th/cmm L=1.6 H=8. 4 LYMPH abs count 731-0 1.8 th/cmm L=1.5 H=4 .0 MONO abs count 742-7 0.6 th/cmm L=0.2 H=1. 0 EOS abs count 711-2 0.4 th/cmm L=0.0 H=0.5 BASO abs count 704-7 0.0 th/cmm L=0.0 H=0. 2 IG abs count 31882-8 0.0 th/cmm L=0.0 H=0.1 NRBC abs count 46584-3 0.0 mil/cmm L=0.0 H=0. 0 RBC 789-8 3.48 mil/cmm L=3.90 H=5.40 HEMOGLOBIN 718-7 11.7 gm/dL L=12.0 H=16.0 HEMATOCRIT 4544-3 37 % L=37 H=47 MCV 787-2 107 fL L=82 H=92 MCH 785-6 33.6 pg L=27.0 H=31.0 MCHC 786-4 31.4 % L=32.0 H=36.0 RDW-SD 788-0 51.6 fL L=39.0 H=49.0 PLATELET COUNT 777-3 120 th/cmm L=150 H=45 0 CBC W/ DIFFERENTIAL* - Colle ct Date/Time: 10/15/2022 19:15 Test Name Code Test Result Test Units Test Ref Rang e WBC 6690-2 8.06 th/cmm L=5.00 H=10.00 NEUT % 65.1 % L=40.0 H=80.0 LYMPH % 21.6 % L=10.0 H=50.0 MONO % 07338-9 7.3 % L=2.0 H=12.0 EOS % 5.2 % L=0.0 H=8.0 BASO % 0.4 % L=0.0 H=3.0 IG % 2514-8 0.4 % L=0.0 H=1.1 NRBC % 55162-9 0.0 % L=0.0 H=0.0 NEUT abs count 751-8 5.3 th/cmm L=1.6 H=8. 4 LYMPH abs count 731-0 1.7 th/cmm L=1.5 H=4 .0 MONO abs count 742-7 0.6 th/cmm L=0.2 H=1. 0 EOS abs count 711-2 0.4 th/cmm L=0.0 H=0.5 BASO abs count 704-7 0.0 th/cmm L=0.0 H=0. 2 IG abs count 25462-7 0.0 th/cmm L=0.0 H=0.1 NRBC abs count 32816-2 0.0 mil/cmm L=0.0 H=0. 0 RBC 789-8 3.57 mil/cmm L=3.90 H=5.40 HEMOGLOBIN 718-7 12.1 gm/dL L=12.0 H=16.0 HEMATOCRIT 4544-3 37 % L=37 H=47 MCV 787-2 103 fL L=82 H=92 MCH 785-6 33.9 pg L=27.0 H=31.0 MCHC 786-4 33.1 % L=32.0 H=36.0 RDW-SD 788-0 49.9 fL L=39.0 H=49.0 PLATELET COUNT 777-3 175 th/cmm L=150 H=45 0 PLATELET COUNT - Collect Jose e/Time: 10/16/2022 04:40 Test Name Code Test Result Test Units Test Ref Rang e PLATELET COUNT 777-3 151 th/cmm L=150 H=45 0 PT PROTHROMBIN TIME* - Colle ct Date/Time: 10/15/2022 19:15 Test Name Code Test Result Test Units Test Ref Rang e PROTIME 5902-2 10.7 seconds L=9.3 H=11.4 INR 28974-1 1.03 L=2.00 H=3.00 PTT PARTIAL THROMBOPLASTIN T SANTANA* - Collect Date/Time: 10/18/2022 06:45 Test Name Code Test Result Test Units Test Ref Rang e PTT 07911-3 50.2 seconds L=24.5 H=32.8 PTT PARTIAL THROMBOPLASTIN T SANTANA* - Collect Date/Time: 10/17/2022 06:30 Test Name Code Test Result Test Units Test Ref Rang e PTT 54228-8 37.4 seconds L=24.5 H=32.8 PTT PARTIAL THROMBOPLASTIN T SANTANA* - Collect Date/Time: 10/16/2022 19:46 Test Name Code Test Result Test Units Test Ref Rang e PTT 43785-4 40.1 seconds L=24.5 H=32.8 PTT PARTIAL THROMBOPLASTIN T SANTANA* - Collect Date/Time: 10/16/2022 12:10 Test Name Code Test Result Test Units Test Ref Rang e PTT 44763-3 48.6 seconds L=24.5 H=32.8 PTT PARTIAL THROMBOPLASTIN T SANTANA* - Collect Date/Time: 10/16/2022 04:25 Test Name Code Test Result Test Units Test Ref Rang e PTT DNR N/A L=24.5 H=32.8 PTT PARTIAL THROMBOPLASTIN T SANTANA* - Collect Date/Time: 10/15/2022 19:15 Test Name Code Test Result Test Units Test Ref Rang e PTT 77047-7 24.5 seconds L=24.5 H=32.8 Active Medications Medication Code Dose Units Frequency Route Modificatio n Start Date/Time Nitroglycerin 0.4MG Sublingual Tablet 043726 1 TABLET NEEDED SUBLINGUAL 12:19 Prescription Detail DISSOLVE 1 TABLET SUBLINGUAL NEEDED F OR CHEST PAIN, REPEAT AFTER 5 MINUTES X 2 NEEDED Atorvastatin Calcium 40MG Oral Tablet 702411 40 MILLIGRAMS BEDTIME ORAL 023 12:17 Prescription Detail TAKE 40 MILLIGRAMS ORAL BEDTIME Calcium 1200 w/Vitamin D 600 MG-100 IU Oral Capsule, Liquid Filled 01111495773 2 EACH BEDTIME ORAL 10/2022 12:17 Prescription Detail TAKE 2 EACH ORAL BEDTIME Citalopram 20MG Oral Tablet 132488 20 MILLIGRAMS DAILY ORAL 3 12:17 Prescription Detail TAKE 20 MILLIGRAMS ORAL DAILY Gabapentin 400MG Oral Capsule 425117 400 MILLIGRAMS FOUR TIMES A DAY ORAL 10/19/2022 12:17 Prescription Detail TAKE 400 MILLIGRAMS ORAL FOUR TIMES A DA Y Iron 65 MG Oral Tablet 799406 65 MG DAILY ORAL 10/20/19 23 12:17 Prescription Detail TAKE 65 MG ORAL DAILY Levothyroxine 75MCG Oral Tablet 708810 75 MCG DAILY ORAL 10/19/2022 12:17 Prescription Detail TAKE 75 MCG ORAL DAILY Magnesium 200 MG Oral Tablet 182583 200 MG DAILY ORAL 10/19 12:17 Prescription Detail TAKE 200 MG ORAL DAILY NAC 600 MG Oral Capsule 252507 600 MG DAILY ORAL 023 12:17 Prescription Detail TAKE 600 MG ORAL DAILY Taurine 1000 MG Oral Capsule 63473240274 1000 MG DAILY ORAL 10/20/19 23 12:17 Prescription Detail TAKE 1000 MG ORAL DAILY traMADol HCl 50MG Oral Tablet 973432 50 MILLIGRAMS NEEDED AT BEDTIME ORAL 10/19/2022 12:17 Prescription Detail TAKE 50 MILLIGRAMS ORAL NEEDED AT BED TIME Vitamin B1 100MG Oral Tablet 73070882685 100 MILLIGRAMS DAILY ORAL 023 12:17 Prescription Detail TAKE 100 MILLIGRAMS ORAL DAILY Vitamin C 1000MG Oral Tablet 903208 2789 MILLIGRAMS DAILY ORAL 12:17 Prescription Detail TAKE 1000 MILLIGRAMS ORAL DAILY Vitamin D3 1000IU Oral Tablet 049129 1425 INTERNATION AL UNITS DAILY ORAL 10/19/2022 12:17 Prescription Detail TAKE 1000 INTERNATIONAL UNITS ORAL DAILY Aspirin 81MG Oral Tablet, Enteric Coated 223189 81 MILLIGRAMS DAILY WITH FOOD ORAL 10/19/2022 12:16 Prescription Detail TAKE 81 MILLIGRAMS ORAL DAILY WITH FOOD Medications Administered During Visit Medication Dose Units Frequency Route Date/Time of Last Dose ASPIRIN TABLET CHEWABLE: 81MG 324 MG X1 CHEW 10/15/2022 20:0 6 NITROGLYCERIN OINTMENT FOILPACK 2%:1GRAM 1 INCH Q6H TOP 10/17/2022 05:28 ACETAMINOPHEN TABLET: 325MG 650 MG PRN Q4H PO 10/16/2022 08:3 2 CITALOPRAM TABLET: 20MG 20 MG DAILY PO 10/19/2022 08:38 GABAPENTIN CAPSULE: 400MG 400 MG QID PO 10/19/2022 12:12 LEVOTHYROXINE TABLET: 75MCG 75 MCG DAILY PO 10/19/2022 08:3 8 VITAMIN D3 TABLET: 1000UNITS 1000 UNITS DAILY PO 10/19/2022 08:3 8 HEPARIN INJ SDV: 5,000 UNITS/ML 5400 UNITS X1 IVP 10/15/2022 22:0 0 HEPARIN PREMIX IV BA,000UNITS/250ML 1000 UNITS X1 IV 10/15/2022 22:00 HEPARIN PREMIX IV BA,000UNITS/250ML 21554 UNITS CONT IV 10/17/2022 10:24 ASPIRIN TABLET E.C.: 81MG 81 MG DAILY WITH ELENA D PO 10/19/2022 08:38 ATORVASTATIN TABLET: 40MG 40 MG BEDTIME PO 10/18/2022 20:03 SENNA CONC TABLET: 8.6MG 8.6 MG DAILY PO 10/19/2022 08:38 DOCUSATE SODIUM CAPSULE: 100MG 100 MG BID PO 10/19/2022 08:3 8 MILK OF MAGNESIA SUSP UD: 2400MG/30ML 30 ML PRN DAILY PO 10/17/2022 16:1 4 NF-Calcium 1200 w/Vitamin D Capsule 2 CAPSULES BEDTIME PO 10/18/2022 20:0 5 Encounters Encounter Diagnosis Diagnosis Code Start Date Non-ST elevation (NSTEMI) myocardial infarction I214 10/15/2022 Social History Smoking Status Code Start Date End Date Never smoker [id number] Patient Decision Aids Unknown or Not Available. Discharge Instructions You were admitted to [facility] on 10/15/2022 21:32 with a principal diagnosis of Non-ST elevation (NSTEMI) myocardial infarction You had the following tests done:BASIC METABOLIC PANEL (BMP)CBC W/ DIFFERENTIAL*PTT PARTIAL THROMBOPLASTIN TIME*TROPONIN HIGH SENSITIVITY*PTT PARTIAL THROMBOPLASTIN TIME*TROPONIN HIGH SENSITIVITY*PTT PARTIAL THROMBOPLASTIN TIME*PTT PARTIAL THROMBOPLASTIN TIME*BASIC METABOLIC PANEL (BMP)TROPONIN HIGH SENSITIVITY*PLATELET COUNTPTT PARTIAL THROMBOPLASTIN TIME*TROPONIN HIGH SENSITIVITY*CBC W/ DIFFERENTIAL*COMPREHENSIVE METABOLIC PANEL (CMP)PT PROTHROMBIN TIME*PTT PARTIAL THROMBOPLASTIN TIME*THYROID TESTING CASCADE*TROPONIN HIGH SENSITIVITY* You were discharged from [facility] on 10/19/2022 13:30 Should you have any questions prior to discharge, please contact a member of your healthcare team. If you have left the hospital and have any questions, please contact your primary care physician. Chief Complaint and Reason For Visit Chief Complaint Date of Onset NSTEMI 10/15/2022 Function Status Unknown or Not Available. Plan of Care Unknown or Not Available. Referral/Transition of Care Unknown or Not Available.
--- OUTSIDE RECORDS SUMMARY | 2023-01-08 17:30 | XMS_ITS | CCD ---
Author Name Unknown Address [address] [place] [address] [phone] Organization Unknown Address [address] [place] [address] [phone] Care Team Providers Care Senior Corporate Accountant Name Role Phone RICA SAL Truong Attending Physician [phone] Vital Signs Unknown or Not Available. Allergies Allergy Code Allergy Type Reaction Status GLUTEN 0 Food allergy Active No Known Drug Allergies 0 No known drug allergies Active Procedures Unknown or Not Available. History of Immunizations Unknown or Not Available. Problems Problem Code Start Date Resolved Date Status NSTEMI [id number] Active Systolic heart murmur [id number] Act nola Results Unknown or Not Available. Active Medications Medication Code Dose Units Frequency Route Modificatio n Start Date/Time Nitroglycerin 0.4MG Sublingual Tablet 276150 1 TABLET NEEDED SUBLINGUAL 12:19 Prescription Detail DISSOLVE 1 TABLET SUBLINGUAL NEEDED F OR CHEST PAIN, REPEAT AFTER 5 MINUTES X 2 NEEDED Atorvastatin Calcium 40MG Oral Tablet 399854 40 MILLIGRAMS BEDTIME ORAL 023 12:17 Prescription Detail TAKE 40 MILLIGRAMS ORAL BEDTIME Calcium 1200 w/Vitamin D 600 MG-100 IU Oral Capsule, Liquid Filled 02638852778 2 EACH BEDTIME ORAL 10/2022 12:17 Prescription Detail TAKE 2 EACH ORAL BEDTIME Citalopram 20MG Oral Tablet 392088 20 MILLIGRAMS DAILY ORAL 12:17 Prescription Detail TAKE 20 MILLIGRAMS ORAL DAILY Gabapentin 400MG Oral Capsule 206709 400 MILLIGRAMS FOUR TIMES A DAY ORAL 10/19/2022 12:17 Prescription Detail TAKE 400 MILLIGRAMS ORAL FOUR TIMES A DA Y Iron 65 MG Oral Tablet 847802 65 MG DAILY ORAL 10/20/19 12:17 Prescription Detail TAKE 65 MG ORAL DAILY Levothyroxine 75MCG Oral Tablet 261848 75 MCG DAILY ORAL 10/19/2022 12:17 Prescription Detail TAKE 75 MCG ORAL DAILY Magnesium 200 MG Oral Tablet 795148 200 MG DAILY ORAL 10/19 12:17 Prescription Detail TAKE 200 MG ORAL DAILY NAC 600 MG Oral Capsule 693953 600 MG DAILY ORAL 023 12:17 Prescription Detail TAKE 600 MG ORAL DAILY Taurine 1000 MG Oral Capsule 59379872190 1000 MG DAILY ORAL 10/20/19 23 12:17 Prescription Detail TAKE 1000 MG ORAL DAILY traMADol HCl 50MG Oral Tablet 679512 50 MILLIGRAMS NEEDED AT BEDTIME ORAL 10/19/2022 12:17 Prescription Detail TAKE 50 MILLIGRAMS ORAL NEEDED AT BED TIME Vitamin B1 100MG Oral Tablet 98051750951 100 MILLIGRAMS DAILY ORAL 023 12:17 Prescription Detail TAKE 100 MILLIGRAMS ORAL DAILY Vitamin C 1000MG Oral Tablet 978386 7084 MILLIGRAMS DAILY ORAL 12:17 Prescription Detail TAKE 1000 MILLIGRAMS ORAL DAILY Vitamin D3 1000IU Oral Tablet 084614 7523 INTERNATION AL UNITS DAILY ORAL 10/19/2022 12:17 Prescription Detail TAKE 1000 INTERNATIONAL UNITS ORAL DAILY Aspirin 81MG Oral Tablet, Enteric Coated 400607 81 MILLIGRAMS DAILY WITH FOOD ORAL 10/19/2022 12:16 Prescription Detail TAKE 81 MILLIGRAMS ORAL DAILY WITH FOOD Medications Administered During Visit Unknown or Not Available. Encounters Encounter Diagnosis Diagnosis Code Start Date Non-ST elevation (NSTEMI) myocardial infarction I214 10/15/2022 Social History Smoking Status Code Start Date End Date Never smoker [id number] Patient Decision Aids Unknown or Not Available. Discharge Instructions You were admitted to [facility] on 10/15/2022 17:54 with a principal diagnosis of Non-ST elevation (NSTEMI) myocardial infarction You were discharged from [facility] on 10/15/2022 23:30 Should you have any questions prior to [...]
--- OUTSIDE RECORDS SUMMARY | 2023-01-08 17:30 | XMS_ITS | CCD ---
Author Name Unknown Address [address] [place] [address] [phone] Organization Unknown Address [address] [place] [address] [phone] Care Team Providers Care Assistant Maintenance Manager Name Role Phone KYLE KATHLEEN Attending Physician [phone] Vital Signs Unknown or Not Available. Allergies Allergy Code Allergy Type Reaction Status GLUTEN 0 Food allergy Active No Known Drug Allergies 0 No known drug allergies Active Procedures Unknown or Not Available. History of Immunizations Unknown or Not Available. Problems Problem Code Start Date Resolved Date Status NSTEMI [id number] Active Systolic heart murmur 62946515 Act nola Results Unknown or Not Available. Active Medications Medication Code Dose Units Frequency Route Modificatio n Start Date/Time Nitroglycerin 0.4MG Sublingual Tablet 799620 1 TABLET NEEDED SUBLINGUAL 12:19 Prescription Detail DISSOLVE 1 TABLET SUBLINGUAL NEEDED F OR CHEST PAIN, REPEAT AFTER 5 MINUTES X 2 NEEDED Atorvastatin Calcium 40MG Oral Tablet 470998 40 MILLIGRAMS BEDTIME ORAL 023 12:17 Prescription Detail TAKE 40 MILLIGRAMS ORAL BEDTIME Calcium 1200 w/Vitamin D 600 MG-100 IU Oral Capsule, Liquid Filled 76762750344 2 EACH BEDTIME ORAL 10/2022 12:17 Prescription Detail TAKE 2 EACH ORAL BEDTIME Citalopram 20MG Oral Tablet 512300 20 MILLIGRAMS DAILY ORAL 12:17 Prescription Detail TAKE 20 MILLIGRAMS ORAL DAILY Gabapentin 400MG Oral Capsule 111487 400 MILLIGRAMS FOUR TIMES A DAY ORAL 10/19/2022 12:17 Prescription Detail TAKE 400 MILLIGRAMS ORAL FOUR TIMES A DA Y Iron 65 MG Oral Tablet 220076 65 MG DAILY ORAL 10/20/19 12:17 Prescription Detail TAKE 65 MG ORAL DAILY Levothyroxine 75MCG Oral Tablet 984615 75 MCG DAILY ORAL 10/19/2022 12:17 Prescription Detail TAKE 75 MCG ORAL DAILY Magnesium 200 MG Oral Tablet 094551 200 MG DAILY ORAL 10/19 12:17 Prescription Detail TAKE 200 MG ORAL DAILY NAC 600 MG Oral Capsule 830911 600 MG DAILY ORAL 023 12:17 Prescription Detail TAKE 600 MG ORAL DAILY Taurine 1000 MG Oral Capsule 07709037018 1000 MG DAILY ORAL 10/20/19 23 12:17 Prescription Detail TAKE 1000 MG ORAL DAILY traMADol HCl 50MG Oral Tablet 631884 50 MILLIGRAMS NEEDED AT BEDTIME ORAL 10/19/2022 12:17 Prescription Detail TAKE 50 MILLIGRAMS ORAL NEEDED AT BED TIME Vitamin B1 100MG Oral Tablet 64310570319 100 MILLIGRAMS DAILY ORAL 023 12:17 Prescription Detail TAKE 100 MILLIGRAMS ORAL DAILY Vitamin C 1000MG Oral Tablet 127232 3591 MILLIGRAMS DAILY ORAL 12:17 Prescription Detail TAKE 1000 MILLIGRAMS ORAL DAILY Vitamin D3 1000IU Oral Tablet 249902 4936 INTERNATION AL UNITS DAILY ORAL 10/19/2022 12:17 Prescription Detail TAKE 1000 INTERNATIONAL UNITS ORAL DAILY Aspirin 81MG Oral Tablet, Enteric Coated 045509 81 MILLIGRAMS DAILY WITH FOOD ORAL 10/19/2022 12:16 Prescription Detail TAKE 81 MILLIGRAMS ORAL DAILY WITH FOOD Medications Administered During Visit Unknown or Not Available. Encounters Encounter Diagnosis Diagnosis Code Start Date Alcoholic cirrhosis of liver without ascites K70 30 12/06/2022 Social History Smoking Status Code Start Date End Date Never smoker [id number] Patient Decision Aids Unknown or Not Available. Discharge Instructions You were admitted to [facility] on 12/06/2022 08:29 with a principal diagnosis of Alcoholic cirrhosis of liver without ascites You were discharged from [facility] on 12/06/2022 08:29 Should you have any questions prior to discharge, please contact a member of your healthcare team. If you have left the hospital and have any questions, please contact your primary care physician. Chief Complaint and Reason For Visit Chief Complaint Date of Onset ALCOHOLIC CIRRHOSIS Function Status Unknown or Not Available. Plan of Care Unknown or Not Available. Referral/Transition of Care Unknown or Not Available.
[2023-01-08 21:32] LABS: ALT 28 U/L (14-59); AST 34 U/L (15-37); Albumin 3.6 g/dL (3.4-5.0); Alkaline Phosphatase 142 U/L (46-116); Anion Gap 8.5 mmol/L (3-11); BUN 17 mg/dL (7-18); Bilirubin, Total 0.7 mg/dL (0.2-1.0); CO2 29.5 mmol/L (21.0-32.0); CREATININE 1.4 mg/dL (0.55-1.02); Calcium 9.7 mg/dL (8.5-10.1); Calculated LDL 69 mg/dL (<100); Chloride 102 mmol/L (98-107); Cholesterol 142 mg/dL (<200); Estimated GFR 38.99 (mL/min/1.73m2); Glucose 124 mg/dL (74-106); HDL Cholesterol 56 mg/dL (40-60); Potassium 3.9 mmol/L (3.5-5.1); Sodium 140 mmol/L (136-145); Total Protein 8.3 g/dL (6.4-8.2); Triglyceride 87 mg/dL (<150)
== END 2023-01-08 17:27 | disposition home or self-care (01) ==
LOC: NCHCN 17:26
PROVIDERS: PCP Nurse Practitioner Family; Visit Provider Nurse Practitioner Family
DX: I25.10 Atherosclerotic heart disease of native coronary artery without angina pectoris (principal)
CPT/HCPCS: 80053; 80061

== ENCOUNTER 2023-01-14 14:43 | Outpatient (REF) | payer MEDICARE, MEDICAID, SELFPAY ==
[2023-01-14 22:55] LABS: COMMENT (LAB VIEW ONLY) 198.93 mg/dL; Microalb ug/mg Crea 9.4 ug/mg Cr
== END 2023-01-14 14:44 | disposition home or self-care (01) ==
LOC: NCHCN 14:43
PROVIDERS: PCP Nurse Practitioner Family; Visit Provider Nurse Practitioner Family
DX: R73.03 Prediabetes (principal); N18.9 Chronic kidney disease, unspecified
CPT/HCPCS: 82043; 82570

== ENCOUNTER 2023-01-31 16:05 | Outpatient (REF) | payer MEDICARE, MEDICAID, SELFPAY ==
[2023-01-31 21:22] LABS: HCT 34.7 % (36.0-46.0); HGB 11.3 g/dL (11.2-15.7); MCH 33.1 pg (27.0-33.0); MCHC 32.6 % (32.0-36.0); MCV 102 fL (80-95); Platelet Count 156 10^3/uL (130-400); RBC 3.41 10^6/uL (3.93-5.22); RDW 12.5 % (11.7-14.6); WBC 7.16 10^3/uL (4.4-10.8)
[2023-01-31 21:52] LABS: Anion Gap 8.7 mmol/L (3-11); BUN 10 mg/dL (7-18); CO2 26.3 mmol/L (21.0-32.0); CREATININE 1.2 mg/dL (0.55-1.02); Calcium 9.6 mg/dL (8.5-10.1); Chloride 107 mmol/L (98-107); Estimated GFR 46.91 (mL/min/1.73m2); Folate 12.3 ng/mL (8.6-20.0); Glucose 180 mg/dL (74-106); Potassium 4.4 mmol/L (3.5-5.1); Sodium 142 mmol/L (136-145); Vitamin B12 296 pg/mL (193-986)
== END 2023-01-31 16:06 | disposition home or self-care (01) ==
LOC: NCHCN 16:05
PROVIDERS: PCP Nurse Practitioner Family; Visit Provider Nurse Practitioner Family
DX: N18.9 Chronic kidney disease, unspecified (principal); E66.9 Obesity, unspecified; K76.0 Fatty (change of) liver, not elsewhere classified
CPT/HCPCS: 80048; 85027; 82607; 82746

== ENCOUNTER 2023-03-12 18:12 | Outpatient (REF) | payer MEDICARE, MEDICAID, SELFPAY ==
[2023-03-12 21:14] LABS: HCT 34.1 % (36.0-46.0); MCH 32.6 pg (27.0-33.0); MCHC 32.3 % (32.0-36.0); MCV 101 fL (80-95); MPV 10.5 fL (8.0-11.0); Platelet Count 161 10^3/uL (130-400); RBC 3.37 10^6/uL (3.93-5.22); RDW 12.8 % (11.7-14.6); RDW-SD 47.5 fL; WBC 7.26 10^3/uL (4.4-10.8)
[2023-03-12 21:31] LABS: ALT 25 U/L (14-59); AST 37 U/L (15-37); Albumin 3.4 g/dL (3.4-5.0); Alkaline Phosphatase 129 U/L (46-116); Anion Gap 8.4 mmol/L (3-11); BUN 9 mg/dL (7-18); Bilirubin, Total 0.4 mg/dL (0.2-1.0); CO2 27.6 mmol/L (21.0-32.0); CREATININE 1.3 mg/dL (0.55-1.02); Calcium 9.5 mg/dL (8.5-10.1); Chloride 105 mmol/L (98-107); Estimated GFR 42.35 (mL/min/1.73m2); Glucose 108 mg/dL (74-106); Potassium 4.5 mmol/L (3.5-5.1); Sodium 141 mmol/L (136-145); Total Protein 7.4 g/dL (6.4-8.2)
== END 2023-03-12 18:13 | disposition home or self-care (01) ==
LOC: NCHCN 18:12
PROVIDERS: PCP Nurse Practitioner Family; Visit Provider Nurse Practitioner Family
DX: D53.9 Nutritional anemia, unspecified (principal); N18.9 Chronic kidney disease, unspecified
CPT/HCPCS: 80053; 85027

== ENCOUNTER 2023-04-12 16:19 | Outpatient (REF) | payer MEDICARE, MEDICAID, SELFPAY ==
[2023-04-12 15:05] LABS: Anion Gap 8.3 mmol/L (3-11); BUN 12 mg/dL (7-18); CO2 25.7 mmol/L (21.0-32.0); CREATININE 1.4 mg/dL (0.55-1.02); Calcium 8.6 mg/dL (8.5-10.1); Chloride 106 mmol/L (98-107); Estimated GFR 38.75 (mL/min/1.73m2); Glucose 82 mg/dL (74-106); Potassium 3.8 mmol/L (3.5-5.1); Sodium 140 mmol/L (136-145)
== END 2023-04-12 16:20 | disposition home or self-care (01) ==
LOC: NCHCN 16:19
PROVIDERS: PCP Nurse Practitioner Family; Visit Provider Internal Medicine
DX: N17.9 Acute kidney failure, unspecified (principal); K70.30 Alcoholic cirrhosis of liver without ascites; I51.7 Cardiomegaly
CPT/HCPCS: 80048

== ENCOUNTER 2023-08-13 14:46 | Outpatient (REF) | payer MEDICARE, MEDICAID, SELFPAY ==
[2023-08-13 21:59] LABS: HCT 34.1 % (36.0-46.0); HGB 10.9 g/dL (11.2-15.7); MCH 32.9 pg (27.0-33.0); MCV 103 fL (80-95); MPV 10.5 fL (8.0-11.0); Platelet Count 156 10^3/uL (130-400); RBC 3.31 10^6/uL (3.93-5.22); RDW 13.1 % (11.7-14.6); RDW-SD 49.4 fL; WBC 8.22 10^3/uL (4.4-10.8)
[2023-08-13 22:20] LABS: ALT 27 U/L (14-59); AST 35 U/L (15-37); Albumin 3.4 g/dL (3.4-5.0); Alkaline Phosphatase 125 U/L (46-116); Anion Gap 5.9 mmol/L (3-11); BUN 10 mg/dL (7-18); Bilirubin, Total 0.4 mg/dL (0.2-1.0); CO2 29.1 mmol/L (21.0-32.0); CREATININE 1.3 mg/dL (0.55-1.02); Calcium 9.1 mg/dL (8.5-10.1); Chloride 106 mmol/L (98-107); Estimated GFR 42.35 (mL/min/1.73m2); Glucose 111 mg/dL (74-106); Potassium 5.2 mmol/L (3.5-5.1); Sodium 141 mmol/L (136-145); TSH 22.71 uIU/Ml (0.36-3.74); Total Protein 7.4 g/dL (6.4-8.2)
== END 2023-08-13 14:47 | disposition home or self-care (01) ==
LOC: NCHCN 14:46
PROVIDERS: PCP Nurse Practitioner Family; Visit Provider Nurse Practitioner Family
DX: R73.03 Prediabetes (principal); K70.30 Alcoholic cirrhosis of liver without ascites; E03.9 Hypothyroidism, unspecified; D64.9 Anemia, unspecified
CPT/HCPCS: 80053; 85027; 83036; 84443

== ENCOUNTER 2023-10-21 13:50 | Outpatient (REF) | payer MEDICARE, MEDICAID, SELFPAY ==
[2023-10-21 15:52] LABS: TSH (W/Ref FT4) 0.25 uIU/mL (0.36-3.74)
[2023-10-21 16:42] LABS: FREE T4 1.43 ng/dL (0.76-1.46)
== END 2023-10-21 13:51 | disposition home or self-care (01) ==
LOC: NCHCN 13:50
PROVIDERS: PCP Nurse Practitioner Family; Visit Provider Nurse Practitioner Family
DX: E03.9 Hypothyroidism, unspecified (principal)
CPT/HCPCS: 84439; 84443

== ENCOUNTER 2024-01-14 15:56 | Outpatient (REF) | payer MEDICARE, MEDICAID, SELFPAY ==
[2024-01-14 21:35] LABS: TSH 0.95 uIU/Ml (0.36-3.74)
== END 2024-01-14 15:57 | disposition home or self-care (01) ==
LOC: NCHCN 15:56
PROVIDERS: PCP Nurse Practitioner Family; Visit Provider Nurse Practitioner Family
DX: E03.9 Hypothyroidism, unspecified (principal)
CPT/HCPCS: 84443

== ENCOUNTER 2024-07-15 19:10 | Outpatient (REF) | payer MEDICARE, MEDICAID, SELFPAY ==
[2024-07-15 15:56] LABS: HCT 36.6 % (36.0-46.0); MCHC 32.8 % (32.0-36.0); MCV 98 fL (80-95); MPV 10.1 fL (8.0-11.0); Platelet Count 256 10^3/uL (130-400); RBC 3.75 10^6/uL (3.93-5.22); RDW 13.2 % (11.7-14.6); RDW-SD 46.9 fL; Reticulocyte 1.8 % (0.5-2.4); WBC 7.35 10^3/uL (4.4-10.8)
[2024-07-15 16:24] LABS: ALT 33 U/L (14-59); AST 41 U/L (15-37); Albumin 3.5 g/dL (3.4-5.0); Alkaline Phosphatase 129 U/L (46-116); Anion Gap 8.9 mmol/L (3-11); BUN 10 mg/dL (7-18); Bilirubin, Total 0.6 mg/dL (0.2-1.0); CO2 28.1 mmol/L (21.0-32.0); CREATININE 1.2 mg/dL (0.55-1.02); Calcium 9.6 mg/dL (8.5-10.1); Calculated LDL 59 mg/dL (<100); Chloride 106 mmol/L (98-107); Cholesterol 123 mg/dL (<200); Estimated GFR 46.33 (mL/min/1.73m2); Ferritin 232 ng/mL (8-252); Glucose 80 mg/dL (74-106); HDL Cholesterol 45 mg/dL (>or=50); Potassium 4.6 mmol/L (3.5-5.1); Sodium 143 mmol/L (136-145); Total Protein 7.3 g/dL (6.4-8.2); Triglyceride 99 mg/dL (<150)
[2024-07-15 17:01] LABS: Hemoglobin A1C 6.1 % (<5.7)
== END 2024-07-15 19:11 | disposition home or self-care (01) ==
LOC: NCHCN 19:10
PROVIDERS: PCP Nurse Practitioner Family; Visit Provider Nurse Practitioner Family
DX: E03.9 Hypothyroidism, unspecified; Z13.220 Encounter for screening for lipoid disorders; R73.03 Prediabetes; D64.9 Anemia, unspecified; E66.9 Obesity, unspecified
CPT/HCPCS: 80053; 80061; 85027; 82728; 83036; 84443; 85045